=== PATIENT | female | born 1985 | race Caucasian/White ===

== ENCOUNTER 2016-12-05 05:45 | Emergency (ER) | payer OTHER ==
[~2016-12-05] VITALS: Ht 160 cm; Wt 97.5 kg
[2016-12-05 05:52] VITALS: BP 137/76
--- NOTE | 2016-12-05 06:02 | NUR ---
AMBULATED TO ER BED 7
--- NOTE | 2016-12-05 06:03 | NUR ---
MD CAME BY BEDSIDE TO EVALUATE PATIENT.
[2016-12-05] MEDS ORDERED: KETOROLAC 60 MG/2 ML VIAL IM ONE (06:10)
--- NOTE | 2016-12-05 06:14 | NUR ---
TORADOL 60 MG IM GIVEN ORDERED FOR PAIN.
--- NOTE | 2016-12-05 06:29 | NUR ---
WENT FOR CXR 2 VIEW VIA WHEELCHAIR.
--- NOTE | 2016-12-05 06:37 | NUR ---
BACK FROM X-RAY. VERBALIZED TOTAL RELIEF OF PAIN.
--- NOTE | 2016-12-05 06:43 | NUR ---
MD BACK AT BEDSIDE TO RE-EVALUATE AND DISCUSS PLAN OF CARE WITH PATIENT.
--- NOTE | 2016-12-05 06:54 | NUR ---
Patient discharged with v/s stable. Written and verbal after care instructions given and explained. Patient alert, oriented and verbalized understanding of instructions. Ambulatory with steady gait. All questions addressed prior to discharge. ID band removed. Patient advised to follow up with PMD. Rx of TRAMADOL HYDROCHLORIDE given. Patient educated on indication of medication including possible reaction and side effects. Opportunity to ask questions provided and answered.
[2016-12-05 06:57] VITALS: BP 124/78
== END 2016-12-05 06:54 | disposition home or self-care (01) ==
LOC: MED 05:45
DX: S20.212A Contusion of left front wall of thorax, initial encounter (principal); R51 Headache; J45.909 Unspecified asthma, uncomplicated; Z71.6 Tobacco abuse counseling; Z88.5 Allergy status to narcotic agent; Y04.8XXA Assault by other bodily force, initial encounter; Y93.89 Activity, other specified; Y92.89 Other specified places as the place of occurrence of the external cause; Y99.8 Other external cause status
CPT/HCPCS: 71020; 96372; 99284; J1885